=== PATIENT | female | born 1960 | race Caucasian/White ===

== ENCOUNTER → 2021-10-22 | Outpatient (CLI) | payer OTHER ==
--- NOTE | 2021-10-22 11:07 | P.STRESS ---
- Stress Test Note Stress Test Results/Findings: Exam Performed: NM stress cardiolite complete Exam Date: 10/22/21 Reason for Exam: Chest Pain Height: 5 ft 2 in Weight: 63.503 kg Protocol: Jayce Stage: 3 Duration of Exercise: 8:00 Resting Heart Rate: 67 Resting Blood Pressure: 106/57 Maximum Achieved Heart Rate: 144 Maximum Achieved Blood Pressure: 156/42 85% PMHR: 138 100% PMHR: 162 METS: 10.3 Technologist Comment: Stress Test Results/Findings: This is a 61-year-old female with history of hypercholesterolemia, family history of ischemic heart disease and smoking history, being evaluated for chest pain. Stress data: Baseline EKG showed sinus rhythm with diffuse ST-T changes inferolateral leads. Blood pressure at rest is 106/59 with a pulse rate of 67. Patient walked on the Jayce protocol for 8 minutes achieving a maximum heart rate of 144 with a blood pressure 163/50. EKGs taken during and after exercise continued to show nonspecific ST-T abnormalities. Patient did not experience any chest pain. Final impression: #1. Nondiagnostic stress test because of baseline EKG changes #2. Patient did not experience any chest pain #3. No arrhythmias noted. #4. Report on the nuclear images to be provided by the radiologist.
--- NOTE | 2021-10-22 11:11 | P.STRESS ---
- Stress Test Note Stress Test Results/Findings: Exam Performed: NM stress cardiolite complete Exam Date: 10/22/21 Reason for Exam: Chest Pain Height: 5 ft 2 in Weight: 63.503 kg Protocol: Jayce Stage: 3 Duration of Exercise: 8:00 Resting Heart Rate: 67 Resting Blood Pressure: 106/57 Maximum Achieved Heart Rate: 144 Maximum Achieved Blood Pressure: 156/42 85% PMHR: 138 100% PMHR: 162 METS: 10.3 Technologist Comment: Stress Test Results/Findings: 6. His a 68-year-old gentleman with history of hypercholesterolemia, being evaluated for chest pain. Stress data the baseline blood pressure is 118/80 with a pulse rate of 61. Baseline EKG showed sinus rhythm with normal ME interval and QRS duration. A standard dose of dobutamine was initiated at 10 mics and was titrated to 30 mics, achieving a maximum heart rate of 133 with a blood pressure 150/76. EKGs taken during and after exercise showed about half a millimeter to [address] segment changes in the inferolateral leads. Frequent PVCs were noted. The changes reverted back to close to normal in about one 9 minutes and the post exercise period. Echo data: Baseline echo images show normal wall motion and thickening. Exercise echo images at low dose and high dose dobutamine showed augmentation of the wall motion and thickening in all the segments. Final impression: #1. Model and positive stress test. #2. Negative dobutamine stress echo
--- NOTE | 2021-10-22 14:07 | EST ---
Stress Test Results/Findings: Exam Performed: NM stress cardiolite complete Exam Date: 10/22/21 Reason for Exam: Chest Pain Height: 5 ft 2 in Weight: 63.503 kg Protocol: Jayce Stage: 3 Duration of Exercise: 8:00 Resting Heart Rate: 67 Resting Blood Pressure: 106/57 Maximum Achieved Heart Rate: 144 Maximum Achieved Blood Pressure: 156/42 85% PMHR: 138 100% PMHR: 162 METS: 10.3 Technologist Comment: Stress Test Results/Findings: 6. His a 68-year-old gentleman with history of hypercholesterolemia, being evaluated for chest pain. Stress data the baseline blood pressure is 118/80 with a pulse rate of 61. Baseline EKG showed sinus rhythm with normal MI interval and QRS duration. A standard dose of dobutamine was initiated at 10 mics and was titrated to 30 mics, achieving a maximum heart rate of 133 with a blood pressure 150/76. EKGs taken during and after exercise showed about half a millimeter to [address] segment changes in the inferolateral leads. Frequent PVCs were noted. The changes reverted back to close to normal in about one 9 minutes and the post exercise period. Echo data: Baseline echo images show normal wall motion and thickening. Exercise echo images at low dose and high dose dobutamine showed augmentation of the wall motion and thickening in all the segments. Final impression: #1. Model and positive stress test. #2. Negative dobutamine stress echo MTDD
--- NOTE | 2021-10-22 16:34 | NM ---
EXAMINATION TYPE: NM stress cardiolite complete DATE OF EXAM: 10/22/2021 COMPARISON: NONE HISTORY: Precordial Chest pain and abnormal EKG TECHNIQUE: After the intravenous administration of 9.35 mCi Tc 99m Sestamibi - Cardiolite resting SP ECT images acquired 45 minutes post injection. At peak stress 24.9 mCi Tc 99m Sestamibi - Stress images obtained 10 minutes post injection The patient was stressed on the treadmill reaching greater than 85% of predicted maximum heart rate. FINDINGS: No stress-induced ischemic changes are evident. Some global dilatation of the left ventricle may be p resent. Ejection fraction of 66% is normal. No fixed defects are identified. There appears to be some fixed diminished radiotracer near the insertion of the right ventricle on the left ventricle. No rev ersible stress defects on Spect images IMPRESSION: 1. No stress-induced ischemic change evident. 2. There may be some diffuse global dilatation of the left ventricle. Ejection fraction and wall jolie on appear within normal limits.
== END | disposition home or self-care (01) ==
LOC: RADNMMAIN 07:57
PROVIDERS: ATTEND Internal Medicine
DX: R94.31 Abnormal electrocardiogram [ECG] [EKG] (principal); R07.2 Precordial pain
CPT/HCPCS: 93017; 78452; A9500

== ENCOUNTER → 2021-12-30 | Outpatient (CLI) | payer OTHER ==
[2021-12-30 10:47] LABS: Chol/HDL Ratio 3.67 Ratio; LDL Cholesterol,Calculated 103.6 mg/dL (0.0-131.0)
== END | disposition home or self-care (01) ==
LOC: LABWHC1 07:06
PROVIDERS: ATTEND Internal Medicine Interventional Cardiology
DX: E78.5 Hyperlipidemia, unspecified (principal)
CPT/HCPCS: 36415; 80061

== ENCOUNTER → 2022-01-18 | Outpatient (CLI) | payer OTHER ==
--- NOTE | 2022-01-18 14:22 | CT ---
EXAMINATION TYPE: CT angio chest CT DLP: 448.5 mGycm, Automated exposure control for dose reduction was used. DATE OF EXAM: 01/18/2022 1:41 PM COMPARISON: Chest radiograph 02/15/2012. CLINICAL INDICATION:Female, 61 years old with history of I71.2 THORACIC AORTIC ANEURYSM W/O RUPTURE; THORACIC AORTIC ANEURYSM W/O RUPTURE TECHNIQUE/CONTRAST: CTA scan of the thorax is performed with IV Contrast, patient injected with 100 ML mL of Isovue 370, pulmonary embolism protocol. MIP images are created and reviewed. FINDINGS: Pulmonary Artery: There is no evidence for a filling defect within the pulmonary vasculature to sugge st acute pulmonary embolism. The pulmonary artery is of normal size. Lungs/Pleura: No evidence of focal consolidation, pleural effusion or pneumothorax. 2 mm pulmonary mi cronodule within the left upper lobe (series 7, image 80). Calcified granuloma along the left major f issure (series 7, image 80). Airway: Large airways are patent. Heart: Heart is within normal limits for size.. Coronary artery calcifications noted. No pericardial effusion. Vasculature: Mild atherosclerotic calcifications are present throughout the aorta and its branches. N o thoracic aortic aneurysm. No evidence for dissection or intramural hematoma.. The ascending thoraci c aorta measures 3.6 cm in AP dimension. The descending thoracic aorta measures 2.8 cm in AP dimensio n. Partial visualization of infrarenal abdominal aortic aneurysm measuring 3.8 x 3.2 cm. There is pro minent mural plaque identified. The bilateral single renal arteries are patent. The celiac axis and S MA are patent. Mediastinum: No gross evidence of adenopathy. Musculoskeletal: No acute osseous abnormalities Soft Tissues: Unremarkable Lower neck: No significant findings. Upper Abdomen: Right renal cyst. IMPRESSION: 1. No acute thoracic process. 2. No thoracic aortic aneurysm. 3. Partial visualization of infrarenal abdominal aortic aneurysm measuring up to 3.8 cm. Recommend de dicated CTA of the abdomen and pelvis for further evaluation.
== END | disposition home or self-care (01) ==
LOC: RADCTMAIN 12:53
PROVIDERS: ATTEND Internal Medicine
DX: I71.4 Abdominal aortic aneurysm, without rupture (principal)
CPT/HCPCS: 71275; Q9967

== ENCOUNTER → 2023-03-20 | Outpatient (CLI) | payer OTHER ==
[2023-03-20 15:23] LABS: HCT 42.9 % (37.2-46.3); HGB 14.7 d/dL (12.0-15.0); MCHC 34.3 d/dL (32.0-37.0); MCV 93.5 FL (80.0-97.0); Mean Platelet Volume 9.9 FL (9.5-12.2); NRBC Per 100 WBC 0 X 10*3/uL (0.00-0.01); Platelet Count 272 X 10*3/uL (140-440); RBC 4.59 X 10*6/uL (4.10-5.20); RDW 12.7 % (11.5-14.5)
[2023-03-20 15:27] LABS: Blood Urea Nitrogen 11.3 mg/dL (9.0-27.0); Carbon Dioxide 26.6 mmol/L (21.6-31.8); Chloride 106 mmol/L (96-109); Potassium 5.1 mmol/L (3.5-5.5); Sodium 144 mmol/L (135-145)
== END | disposition home or self-care (01) ==
LOC: LABWHC1 10:19
PROVIDERS: ATTEND Internal Medicine
DX: Z01.812 Encounter for preprocedural laboratory examination (principal); R07.9 Chest pain, unspecified
CPT/HCPCS: 36415; 80051; 82565; 84520; 85027

== ENCOUNTER → 2023-11-16 | Outpatient (CLI) | payer OTHER ==
[2023-11-16 14:24] LABS: Basophils # (A) 0.03 X 10*3/uL (0.00-0.10); Basophils % (A) 0.4 %; Eosinophils % (A) 2.9 %; HCT 42.5 % (37.2-46.3); Lymphocytes % (A) 42.9 %; MCH 30.6 pg (27.0-32.0); MCHC 32.9 g/dL (32.0-37.0); Mean Platelet Volume 10.4 FL (9.5-12.2); Monocytes # (A) 0.36 X 10*3/uL (0.20-1.00); Monocytes % (A) 5.2 %; NRBC Per 100 WBC 0 X 10*3/uL (0.00-0.01); Neutrophils # (A) 3.39 X 10*3/uL (1.80-7.70); Neutrophils % (A) 48.5 %; Platelet Count 255 X 10*3/uL (140-440); RBC 4.57 X 10*6/uL (4.10-5.20); RDW 12.6 % (11.5-14.5); WBC 6.99 X 10*3/uL (4.50-10.00)
[2023-11-16 14:48] LABS: Erythrocyte Sedimentation Rate 19 mm/Hr (0-30)
[2023-11-16 15:49] LABS: C Reactive Protein <0.30 mg/dL (0.00-0.80); Rheumatoid Factor, Qnt <15 IU/mL (0-15); Uric Acid 4.5 mg/dL (2.9-7.7)
[2023-11-16 15:56] LABS: DNA Double-Stranded Negative (Negative)
[2023-11-17 15:17] LABS: HLA B27 NEGATIVE
== END | disposition home or self-care (01) ==
LOC: LABWHC1 10:12
PROVIDERS: ATTEND Orthopaedic Surgery
DX: M25.50 Pain in unspecified joint (principal)
CPT/HCPCS: 36415; 84550; 85025; 85652; 86038; 86140; 86225; 86431; 86812